=== PATIENT | female | born 1985 | race Caucasian/White ===

== ENCOUNTER 2017-06-12 15:35 | Emergency (ER) | payer OTHER ==
[2017-06-12] MEDS ORDERED: NA CHLORIDE 0.9% 1,000 ML ONE ×2 (16:40→17:08)
[2017-06-12 16:43] LABS: Urine Blood 2+ (NEG); Urine Glucose NEGATIVE (NEG); Urine Protein NEGATIVE (NEG); Urine Specific Gravity 1.015 (1.005-1.030)
[2017-06-12 16:45] LABS: Urine Bacteria NONE SEEN /HPF (<20); Urine Culture Reflex Order NOT NEEDED; Urine RBC <5 /HPF (NONE SEEN)
[2017-06-12 16:51] LABS: Absolute Lymphocytes (CBC) 1.5 K/uL (0.7-4.9); Absolute Monocytes 0.4 K/uL (0.1-1.3); Absolute Neutrophil 6.1 K/uL (1.8-8.0); Basophils % 0.2 % (0-1.3); Eosinophils % 0.9 % (0-4.4); Hematocrit 40.6 % (36.0-45.0); Lymphocytes % 18.2 % (15.3-44.8); MCH 30.3 pg (27.0-35.0); MCV 87.5 fL (80-100); MPV 7.1 fL (7.6-11.3); Monocytes % 4.5 % (3.3-12.3); RBC Red Blood Cell Count 4.64 M/uL (3.86-4.86)
[2017-06-12 16:54] LABS: Potassium 3.6 mEq/L (3.6-5.0)
[2017-06-12] MEDS ORDERED: KETOROLAC 30 MG/ML INJ ONE (17:08)
[2017-06-12] MEDS ORDERED: PROMETHAZINE 25 MG/ML VIAL ONE (17:08)
--- NOTE | 2017-06-12 17:59 | ER ---
Nurse's Notes [facility] Name: Abigail Jarrell Age: 32 yrs Sex: Female : 1985 Arrival Date: 06/12/2017 Time: 15:39 Bed 19 Private MD: Diagnosis: Headache;Volume depletion Presentation: 06/12 15:51 Presenting complaint: Patient states: "My head is killing me and I have been lk1 vomiting.". Transition of care: patient was not received from another setting of care. Onset of symptoms was June 12, 2017 at 09:00. Care prior to arrival: None. 15:51 Method Of Arrival: Ambulatory lk1 15:51 Acuity: LISANDRA 3 lk1 Triage Assessment: 15:52 General: Appears in no apparent distress. Behavior is calm, cooperative, appropriate lk1 for age. Pain: Complains of pain in head Pain currently is 9 out of 10 on a pain scale. GI: Reports nausea, vomiting. 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 - Social history:: Smoking status: Patient uses tobacco products, denies chronic smoking, but will smoke occasionally. Screenin:15 Abuse screen: Denies threats or abuse. Denies injuries from another. Nutritional jl7 screening: No deficits noted. Tuberculosis screening: No symptoms or risk factors identified. Fall Risk IV access (20 points). Total Shepard Fall Scale indicates No Risk (0-24 pts). Assessment: 16:00 General: Appears in no apparent distress. uncomfortable, Behavior is calm, cooperative, jl7 appropriate for age. Pain: Complains of pain in headache Pain does not radiate. Pain currently is 8 out of 10 on a pain scale. Pain began this morning at 0300 Is continuous. Neuro: Level of Consciousness is awake, alert, obeys commands, Oriented to person, place, time, situation. Cardiovascular: Patient's skin is warm and dry. Respiratory: Airway is patent Respiratory effort is even, unlabored, Respiratory pattern is regular, symmetrical. GI: Abdomen is flat, non-distended, Bowel sounds present X 4 quads. Abd is soft and non tender Reports nausea, vomiting, since this morning. : No signs and/or symptoms were reported regarding the genitourinary system. EENT: No signs and/or symptoms were reported regarding the EENT system. Derm: Skin is pink, warm \\T\\ dry. Musculoskeletal: No signs and/or symptoms reported regarding the musculoskeletal system. 17:00 Reassessment: Patient and/or family updated on plan of care and expected duration. Pain jl7 level reassessed. Patient is alert, oriented x 3, equal unlabored respirations, skin warm/dry/pink. Patient states feeling better. 18:00 Reassessment: No changes from previously documented assessment. Patient and/or family jl7 updated on plan of care and expected duration. Pain level reassessed. Patient is alert, oriented x 3, equal unlabored respirations, skin warm/dry/pink. Vital Signs: 15:53 BP 116 / 79; Pulse 63; Resp 12; Temp 97.7(O); Pulse Ox 99% on R/A; Weight 68.95 kg (R); lk1 Height 5 ft. 6 in. (167.64 cm) (R); Pain 9/10; 17:03 BP 113 / 61; Pulse 62; Resp 16 S; Pulse Ox 100% on R/A; jl7 18:08 BP 118 / 79; Pulse 65; Resp 18 S; Pulse Ox 100% on R/A; jl7 15:53 Body Mass Index 24.53 (68.95 kg, 167.64 cm) lk1 ED Course: 15:39 Patient arrived in ED. mr 15:52 Triage completed. lk1 15:55 Arm band placed on right wrist. lk1 15:57 Dell Rios RN is Primary Nurse. jl7 15:58 Kyra Lucas FNP-C is PHCP. snw 15:59 Joe Du MD is Attending Physician. snw 16:15 Patient has correct armband on for positive identification. Placed in gown. Bed in low jl7 position. Call light in reach. Side rails up X 1. Pulse ox on. NIBP on. Warm blanket given. 16:30 Initial lab(s) drawn, by me, sent to lab. Urine collected: clean catch specimen, jl7 cloudy. Inserted saline lock: 22 gauge in left antecubital area, using aseptic technique. Blood collected. 18:21 No provider procedures requiring assistance completed. IV discontinued, intact, jl7 bleeding controlled, No redness/swelling at site. Pressure dressing applied. Administered Medications: 16:35 Drug: NS 0.9% 1000 ml Route: IV; Rate: 1 bolus; Site: left antecubital; jl7 16:50 Drug: NS 0.9% 1000 ml Route: IV; Rate: 1 bolus; Site: left antecubital; jl7 16:51 Drug: TORadol 30 mg Route: IVP; Site: left antecubital; jl7 17:35 Follow up: Response: No adverse reaction jl7 16:53 Drug: Phenergan 6.25 mg Route: IVP; Site: left antecubital; jl7 17:35 Follow up: Response: No adverse reaction; Nausea is decreased jl7 Outcome: 17:59 Discharge ordered by MD. davis 18:21 Discharged to home ambulatory. jl7 18:21 Condition: stable 18:21 Discharge instructions given to patient, Instructed on discharge instructions, follow up and referral plans. medication usage, Demonstrated understanding of instructions, follow-up care, medications, Prescriptions given X 1. 18:22 Patient left the ED. jl7 Signatures: Kyra Lucas, MANAGER OF CORPORATE-C MANAGER OF CORPORATE-Lou Holm Leah, RN RN lk1 Dell Rios RN RN jl7
--- NOTE | 2017-06-12 17:59 | EDPHYS ---
Physician Documentation [facility] Name: Abigail Jarrell Age: 32 yrs Sex: Female : 1985 Arrival Date: 06/12/2017 Time: 15:39 Bed 19 Private MD: ED Physician Joe Du HPI: 06/12 18:22 This 32 yrs old Female presents to ER via Ambulatory with complaints of snw Abdominal Pain, Headache. 18:22 The patient presents with vomiting. Onset: The symptoms/episode began/occurred snw suddenly, today. The symptoms do not radiate. Associated signs and symptoms: Pertinent positives: headache. The symptoms are described as pressure. Modifying factors: The symptoms are alleviated by nothing. Severity of pain: At its worst the pain was moderate. The patient has not experienced similar symptoms in the past, but family has similar symptoms. It is unknown whether or not the patient has recently seen a physician. 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 - Social history:: Smoking status: Patient uses tobacco products, denies chronic smoking, but will smoke occasionally. ROS: 18:19 Constitutional: Negative for fever, chills, and weight loss, Eyes: Negative for injury, snw pain, redness, and discharge, + pressure ENT: Negative for injury, pain, and discharge, Neck: Negative for injury, pain, and swelling, Cardiovascular: Negative for chest pain, palpitations, and edema, Respiratory: Negative for shortness of breath, cough, wheezing, and pleuritic chest pain, Abdomen/GI: Negative for abdominal pain, nausea, diarrhea, and constipation, + vomiting Back: Negative for injury and pain, : Negative for injury, bleeding, discharge, and swelling, MS/Extremity: Negative for injury and deformity, Skin: Negative for injury, rash, and discoloration. 18:19 Neuro: Positive for headache. Exam: 18:21 Constitutional: This is a well developed, well nourished patient who is awake, alert, snw and in no acute distress. Head/Face: Normocephalic, atraumatic. Eyes: Pupils equal round and reactive to light, extra-ocular motions intact. Lids and lashes normal. Conjunctiva and sclera are non-icteric and not injected. Cornea within normal limits. Periorbital areas with no swelling, redness, or edema. ENT: Nares patent. No nasal discharge, no septal abnormalities noted. Tympanic membranes are normal and external auditory canals are clear. Oropharynx with no redness, swelling, or masses, exudates, or evidence of obstruction, uvula midline. Mucous membranes moist. Neck: Trachea midline, no thyromegaly or masses palpated, and no cervical lymphadenopathy. Supple, full range of motion without nuchal rigidity, or vertebral point tenderness. No Meningismus. Chest/axilla: Normal chest wall appearance and motion. Nontender with no deformity. No lesions are appreciated. Cardiovascular: Regular rate and rhythm with a normal S1 and S2. No gallops, murmurs, or rubs. Normal PMI, no JVD. No pulse deficits. Respiratory: Lungs have equal breath sounds bilaterally, clear to auscultation and percussion. No rales, rhonchi or wheezes noted. No increased work of breathing, no retractions or nasal flaring. Abdomen/GI: Soft, non-tender, with normal bowel sounds. No distension or tympany. No guarding or rebound. No evidence of tenderness throughout. Back: No spinal tenderness. No costovertebral tenderness. Full range of motion. Skin: Warm, dry with normal turgor. Normal color with no rashes, no lesions, and no evidence of cellulitis. MS/ Extremity: Pulses equal, no cyanosis. Neurovascular intact. Full, normal range of motion. Neuro: Awake and alert, GCS 15, oriented to person, place, time, and situation. Cranial nerves II-XII grossly intact. Motor strength 5/5 in all extremities. Sensory grossly intact. Cerebellar exam normal. Normal gait. Vital Signs: 15:53 BP 116 / 79; Pulse 63; Resp 12; Temp 97.7(O); Pulse Ox 99% on R/A; Weight 68.95 kg (R); lk1 Height 5 ft. 6 in. (167.64 cm) (R); Pain 9/10; 17:03 BP 113 / 61; Pulse 62; Resp 16 S; Pulse Ox 100% on R/A; jl7 18:08 BP 118 / 79; Pulse 65; Resp 18 S; Pulse Ox 100% on R/A; jl7 15:53 Body Mass Index 24.53 (68.95 kg, 167.64 cm) lk1 MDM: 15:59 Patient medically screened. snw 18:15 Data reviewed: vital signs, nurses notes. Data interpreted: Pulse oximetry: on room air snw is 100 %. Interpretation: normal. Counseling: I had a detailed discussion with the patient and/or guardian regarding: the historical points, exam findings, and any diagnostic results supporting the discharge/admit diagnosis, lab results, the need for outpatient follow up, to return to the emergency department if symptoms worsen or persist or if there are any questions or concerns that arise at home. Special discussion: Based on the patient's Hx, exam, and Dx evaluation, there is no indication for emergent surgery or inpatient Tx. It is understood by the patient/guardian that if the Sx's persist or worsen they need to return immediately for re-evaluation. Based on the history and exam findings, there is no indication for further emergent testing or inpatient evaluation. I discussed with the patient/guardian the need to see the primary care provider for further evaluation of the symptoms. 18:22 Response to treatment: the patient's symptoms have markedly improved after treatment, snw the patient's condition has returned to base line, patient is well hydrated. 06/12 15:59 Order name: Urine Culture snw 06/12 15:59 Order name: Urine Microscopic Only; Complete Time: 16:46 snw 06/12 16:08 Order name: CBC with Diff; Complete Time: 17:09 snw 06/12 16:08 Order name: Chem 7; Complete Time: 17:09 snw 06/12 16:08 Order name: Strep; Complete Time: 17:09 snw 06/12 16:29 Order name: Urine Dipstick--Ancillary (enter results); Complete Time: 16:45 bd 06/12 15:59 Order name: Urine Test (obtain specimen); Complete Time: 16:21 snw 06/12 15:59 Order name: Urine Dipstick-Ancillary (obtain specimen); Complete Time: 16:21 snw 06/12 16:29 Order name: Urine --Ancillary (enter results); Complete Time: 16:45 bd 06/12 17:01 Order name: Throat Culture EDMT Administered Medications: 16:35 Drug: NS 0.9% 1000 ml Route: IV; Rate: 1 bolus; Site: left antecubital; jl7 16:50 Drug: NS 0.9% 1000 ml Route: IV; Rate: 1 bolus; Site: left antecubital; jl7 16:51 Drug: TORadol 30 mg Route: IVP; Site: left antecubital; jl7 17:35 Follow up: Response: No adverse reaction jl7 16:53 Drug: Phenergan 6.25 mg Route: IVP; Site: left antecubital; jl7 17:35 Follow up: Response: No adverse reaction; Nausea is decreased jl7 Disposition: 06/13 07:38 Co-signature as Attending Physician, Joe Du MD I agree with the assessment and [facility] plan of care. Disposition: 06/12/17 17:59 Discharged to Home. Impression: Headache, Volume depletion. - Condition is Stable. - Discharge Instructions: Dehydration, Adult, General Headache Without Cause, Rehydration, Adult. - Prescriptions for Zofran 4 mg Oral Tablet - take 1 tablet by ORAL route every 12 hours As needed; 20 tablet. - Work release form, Medication Reconciliation Form, Thank You Letter, Antibiotic Education, Prescription Opioid Use form. - Follow up: Private Physician; When: 2 - 3 days; Reason: Recheck today's complaints, Continuance of care, Re-evaluation by your physician. Follow up: Emergency Department; When: As needed; Reason: Worsening of condition. Signatures: Dispatcher [employer] [place] Joe Du MD MD cha Therrien, Shelly, SOLUTIONS SPECIALIST-C SOLUTIONS SPECIALIST-Csnw Marisabel Erazo, RN RN lk1 Dell Rios RN RN jl7
[2017-06-12 18:28] VITALS: TEMP 97.7
[2017-06-12 18:29] VITALS: O2SAT 100
[2017-06-12 18:30] VITALS: BP 118/79
== END 2017-06-12 18:22 | disposition home or self-care (01) ==
LOC: ER 15:35
DX: E86.9 Volume depletion, unspecified (principal); Z72.0 Tobacco use
CPT/HCPCS: 36415; 80048; 81003; 81015; 81025; 85025; 87070; 87081; 87086; 87088; 96374; 96375; 99284; J2550; J7030

== ENCOUNTER 2017-11-28 11:17 | Emergency (ER) | payer OTHER ==
[2017-11-28] MEDS ORDERED: MEPERIDINE HCL 50 MG/ML AMP ONE (12:12)
[2017-11-28] MEDS ORDERED: ONDANSETRON 4 MG (ODT) TAB ONE (12:12)
--- NOTE | 2017-11-28 12:30 | ER ---
Nurse's Notes [facility] Name: Abigail Jarrell Age: 32 yrs Sex: Female : 1985 Arrival Date: 11/28/2017 Time: 11:22 Bed 11 Private MD: Diagnosis: Pain in left shoulder;Strain of other muscles, fascia and tendons at shoulder and upper arm level, left arm Presentation: 11/28 11:27 Presenting complaint: Patient states: Left shoulder pain that began today around 0200. aa5 Pt denies known injury. Transition of care: patient was not received from another setting of care. Onset of symptoms was November 28, 2017. Risk Assessment: Do you want to hurt yourself or someone else? Patient reports no desire to harm self or others. Initial Sepsis Screen: Does the patient meet any 2 criteria? No. Patient's initial sepsis screen is negative. Does the patient have a suspected source of infection? No. Patient's initial sepsis screen is negative. Care prior to arrival: None. 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 - Social history:: Smoking status: Patient/guardian denies using tobacco. - Ebola Screening: : No symptoms or risks identified at this time. Screenin:17 Abuse screen: Denies threats or abuse. Denies injuries from another. Nutritional iw screening: No deficits noted. Tuberculosis screening: No symptoms or risk factors identified. Fall Risk None identified. Assessment: 12:17 General: Appears in no apparent distress. Behavior is calm, cooperative. Pain: iw Complains of pain in anterior aspect of left shoulder and posterior aspect of left shoulder. Neuro: Level of Consciousness is awake, alert, obeys commands, Oriented to person, place, time, situation. Vital Signs: 11:29 BP 135 / 90; Pulse 85; Resp 16 S; Temp 98.2(TE); Pulse Ox 100% on R/A; Weight 65.77 kg aa5 (R); Height 5 ft. 5 in. (165.10 cm) (R); Pain 10/18; 11:29 Body Mass Index 24.13 (65.77 kg, 165.10 cm) aa5 ED Course: 11:22 Patient arrived in ED. mr 11:28 Triage completed. aa5 11:28 Arm band placed on. aa5 11:31 Sharlene Soni, RN is Primary Nurse. iw 11:33 Obi Mcgarry PA is PHCP. jr8 11:33 Olvin Sapp MD is Attending Physician. jr8 12:00 Patient has correct armband on for positive identification. iw 12:17 No provider procedures requiring assistance completed. Patient did not have IV access iw during this emergency room visit. 12:27 X-ray completed. Portable x-ray completed in exam room. Patient tolerated procedure ml well. 12:29 XRAY Shoulder LEFT 2 view In Process Unspecified. EDMS 12:29 Toby Oviedo MD is Referral Physician. jr8 Administered Medications: 11:50 CANCELLED (Physician Discretion): Phenergan 25 mg IVP once jr8 12:10 Drug: Demerol 50 mg Route: IM; Site: right deltoid; iw 12:25 Follow up: Response: No adverse reaction; Pain is decreased iw 12:10 Drug: Zofran 4 mg Route: PO; iw 12:25 Follow up: Response: No adverse reaction iw Outcome: 12:30 Discharge ordered by . jr8 12:45 Discharged to home ambulatory, with family. iw 12:45 Condition: good 12:45 Discharge instructions given to patient, Instructed on discharge instructions, follow up and referral plans. medication usage, Demonstrated understanding of instructions, follow-up care, medications, Prescriptions given X 3. 12:47 Patient left the ED. iw Signatures: Dispatcher [employer] [facility] Lou Yañez Sharlene Soni, RN RN iw Molly Lisa Audri, RN RN aa Obi Mcgarry PA PA jr8
--- NOTE | 2017-11-28 12:30 | EDPHYS ---
Physician Documentation [facility] Name: Abigail Jarrell Age: 32 yrs Sex: Female : 1985 Arrival Date: 11/28/2017 Time: 11:22 Bed 11 Private MD: ED Physician Olvin Sapp HPI: 11/28 12:24 This 32 yrs old Female presents to ER via Ambulatory with complaints of jr8 Shoulder Pain. 12:24 The patient or guardian complains of decreased range of motion, pain. left shoulder. jr8 Onset: The symptoms/episode began/occurred acutely, this morning. Modifying factors: the symptoms are alleviated by nothing. The symptoms are aggravated by movement. Associated signs and symptoms: The patient has no apparent associated signs or symptoms. Severity of symptoms: At their worst the symptoms were moderate, in the emergency department the symptoms are unchanged. The patient has not experienced similar symptoms in the past. The patient has not recently seen a physician. Stated that she intensely works out almost daily. Stated that this morning had left shoulder pain that is not going away. Denied trauma or pain with exercising yesterday . 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 - Social history:: Smoking status: Patient/guardian denies using tobacco. - Ebola Screening: : No symptoms or risks identified at this time. ROS: 12:24 Eyes: Negative for injury, pain, redness, and discharge, ENT: Negative for injury, jr8 pain, and discharge, Neck: Negative for injury, pain, and swelling, Cardiovascular: Negative for chest pain, palpitations, and edema, Respiratory: Negative for shortness of breath, cough, wheezing, and pleuritic chest pain, Abdomen/GI: Negative for abdominal pain, nausea, vomiting, diarrhea, and constipation, Back: Negative for injury and pain, Skin: Negative for injury, rash, and discoloration, Neuro: Negative for headache, weakness, numbness, tingling, and seizure. 12:24 MS/extremity: Positive for decreased range of motion, pain, tenderness, of the left shoulder. Exam: 12:24 Eyes: Pupils equal round and reactive to light, extra-ocular motions intact. Lids and jr8 lashes normal. Conjunctiva and sclera are non-icteric and not injected. Cornea within normal limits. Periorbital areas with no swelling, redness, or edema. ENT: Nares patent. No nasal discharge, no septal abnormalities noted. Tympanic membranes are normal and external auditory canals are clear. Oropharynx with no redness, swelling, or masses, exudates, or evidence of obstruction, uvula midline. Mucous membranes moist. Neck: Trachea midline, no thyromegaly or masses palpated, and no cervical lymphadenopathy. Supple, full range of motion without nuchal rigidity, or vertebral point tenderness. No Meningismus. Cardiovascular: Regular rate and rhythm with a normal S1 and S2. No gallops, murmurs, or rubs. Normal PMI, no JVD. No pulse deficits. Respiratory: Lungs have equal breath sounds bilaterally, clear to auscultation and percussion. No rales, rhonchi or wheezes noted. No increased work of breathing, no retractions or nasal flaring. Abdomen/GI: Soft, non-tender, with normal bowel sounds. No distension or tympany. No guarding or rebound. No evidence of tenderness throughout. Back: No spinal tenderness. No costovertebral tenderness. Full range of motion. Skin: Warm, dry with normal turgor. Normal color with no rashes, no lesions, and no evidence of cellulitis. Neuro: Awake and alert, GCS 15, oriented to person, place, time, and situation. Cranial nerves II-XII grossly intact. Motor strength 5/5 in all extremities. Sensory grossly intact. Cerebellar exam normal. Normal gait. 12:24 Musculoskeletal/extremity: Extremities: grossly normal except: noted in the left shoulder: Pain to insertion site of pectoralis muscle and bicipital tendon. Pain reproduced with palpation is exact pain that she has been having. No bony tenderness appreciated. Mild pain with ROM, Circulation is intact in all extremities. Sensation intact. Vital Signs: 11:29 BP 135 / 90; Pulse 85; Resp 16 S; Temp 98.2(TE); Pulse Ox 100% on R/A; Weight 65.77 kg aa5 (R); Height 5 ft. 5 in. (165.10 cm) (R); Pain 8/10; 11:29 Body Mass Index 24.13 (65.77 kg, 165.10 cm) aa5 MDM: 11:33 Patient medically screened. jr8 12:29 Data reviewed: vital signs, nurses notes, radiologic studies, plain films, and as a jr8 result, I will discharge patient. Data interpreted: Pulse oximetry: on room air is 100 %. Interpretation: normal. Counseling: I had a detailed discussion with the patient and/or guardian regarding: the historical points, exam findings, and any diagnostic results supporting the discharge/admit diagnosis, radiology results, the need for outpatient follow up, a orthopedic surgeon, to return to the emergency department if symptoms worsen or persist or if there are any questions or concerns that arise at home. Response to treatment: the patient's symptoms have markedly improved after treatment. 11/28 11:47 Order name: XRAY Shoulder LEFT 2 view jr8 Administered Medications: 11:50 CANCELLED (Physician Discretion): Phenergan 25 mg IVP once jr8 12:10 Drug: Demerol 50 mg Route: IM; Site: right deltoid; iw 12:25 Follow up: Response: No adverse reaction; Pain is decreased iw 12:10 Drug: Zofran 4 mg Route: PO; iw 12:25 Follow up: Response: No adverse reaction iw Disposition: 15:33 Co-signature as Attending Physician, Olvin Sapp MD I agree with the assessment and kdr plan of care. Disposition: 11/28/17 12:30 Discharged to Home. Impression: Pain in left shoulder, Strain of other muscles, fascia and tendons at shoulder and upper arm level, left arm. - Condition is Stable. - Discharge Instructions: Musculoskeletal Pain, Shoulder Pain. - Prescriptions for Ibuprofen 800 mg Oral Tablet - take 1 tablet by ORAL route every 12 hours As needed take with food; 20 tablet. Cyclobenzaprine 10 mg Oral Tablet - take 1 tablet by ORAL route every 8 hours As needed; 30 tablet. Tramadol 50 mg Oral Tablet - take 1 tablet by ORAL route every 8 hours as needed; 12 tablet. - Work release form, Medication Reconciliation Form, Thank You Letter, Antibiotic Education, Prescription Opioid Use form. - Follow up: Toby Oviedo MD; When: 1 week; Reason: If symptoms return, Recheck today's complaints, Continuance of care, Re-evaluation by your physician. - Problem is new. - Symptoms have improved. Signatures: Dispatcher [employer] EDMS Olvin Sapp MD MD kdr Sharlene Soni RN RN iw Cris Martin RN RN aa5 Obi Mcgarry PA PA jr8 Corrections: (The following items were deleted from the chart) 11:50 11:50 Phenergan 25 mg IVP once ordered. jr8 jr8 12:27 12:24 Musculoskeletal/extremity: Extremities: grossly normal except: noted in the left jr8 shoulder: Pain to insertion site of pectoralis muscle and bicipital tendon. No bony tenderness appreciated. Mild pain with ROM, Circulation is intact in all extremities. Sensation intact. jr8 12:47 12:30 11/28/2017 12:30 Discharged to Home. Impression: Pain in left shoulder; Strain of iw other muscles, fascia and tendons at shoulder and upper arm level, left arm. Condition is Stable. Forms are Medication Reconciliation Form, Thank You Letter, Antibiotic Education, Prescription Opioid Use. Follow up: Toby Oviedo; When: 1 week; Reason: If symptoms return, Recheck today's complaints, Continuance of care, Re-evaluation by your physician. Problem is new. Symptoms have improved. jr8
--- NOTE | 2017-11-28 12:54 | RAD REPORT ---
EXAM DESCRIPTION: RAD - Shoulder Left 2 View - 11/28/2017 12:29 pm CLINICAL HISTORY: PAIN COMPARISON: No comparisons FINDINGS: Mild subacromial no outlet narrowing is seen. No fracture or dislocation present. No aggre ssive marrow lesion observed.
[2017-11-28 12:58] VITALS: BP 135/90; TEMP 98.2; O2SAT 100
== END 2017-11-28 12:47 | disposition home or self-care (01) ==
LOC: ER 11:17
DX: S46.812A Strain of other muscles, fascia and tendons at shoulder and upper arm level, left arm, initial encounter (principal)
CPT/HCPCS: 96372; 99283; J2175

== ENCOUNTER 2019-05-04 09:31 | Emergency (ER) | payer OTHER ==
[2019-05-04 10:53] LABS: Urine Blood 3+ (NEG); Urine Glucose NEGATIVE (NEG); Urine Protein 1+ (NEG); Urine Specific Gravity >1.030 (1.005-1.030)
[2019-05-04 11:20] LABS: Absolute Lymphocytes (CBC) 2.1 K/uL (0.7-4.9); Basophils % 0.8 % (0-1.3); Hematocrit 35.6 % (36.0-45.0); Lymphocytes % 29.4 % (15.3-44.8); MPV 7.1 fL (7.6-11.3); RBC Red Blood Cell Count 3.99 M/uL (3.86-4.86)
[2019-05-04 11:36] LABS: Potassium 3.6 mmol/L (3.5-5.1)
--- NOTE | 2019-05-04 11:58 | ER ---
Nurse's Notes [facility] Name: Abigail Jarrell Age: 34 yrs Sex: Female : 1985 Arrival Date: 05/04/2019 Time: 09:33 Bed 14 Private MD: Diagnosis: Other abnormal uterine and vaginal bleeding Presentation: 05/04 10:02 Presenting complaint: Heavy menstrual bleeding with large clots and generalized hb weakness x 6 weeks. Transition of care: patient was not received from another setting of care. Onset of symptoms was March 2019. Risk Assessment: Do you want to hurt yourself or someone else? Patient reports no desire to harm self or others. Care prior to arrival: None. 10:02 Method Of Arrival: Ambulatory hb 10:02 Acuity: LISANDRA 3 hb 10:10 Initial Sepsis Screen: Does the patient meet any 2 criteria? No. Patient's initial bp sepsis screen is negative. Does the patient have a suspected source of infection? No. Patient's initial sepsis screen is negative. Triage Assessment: 10:05 General: Appears in no apparent distress. comfortable, Behavior is calm, cooperative, bp appropriate for age. Pain: Denies pain. EENT: No deficits noted. Neuro: No deficits noted. Cardiovascular: No deficits noted. Respiratory: No deficits noted. GI: No signs and/or symptoms were reported involving the gastrointestinal system. : Reports vaginal bleeding that is with clots. Derm: No deficits noted. Musculoskeletal: No deficits noted. 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 - Coronavirus screen:: The patient has NOT traveled to [place] in the past 14 days. The patient has NOT had contact with known/suspected case of Coronavirus? Proceed with normal triage procedures. - Social history:: Smoking status: Patient reports the use of cigarette tobacco products, smokes one pack cigarettes per day. - Ebola Screening: : No symptoms or risks identified at this time. Screenin:05 Abuse screen: Denies threats or abuse. Denies injuries from another. Nutritional bp screening: No deficits noted. Tuberculosis screening: No symptoms or risk factors identified. Fall Risk None identified. Assessment: 10:05 General: SEE TRIAGE NOTE. : Urine is cloudy. bp 11:00 Reassessment: ORTHOSTATICS NEGATIVE. NO S/S ACUTE DISTRESS. bp 12:26 Reassessment: PT D/C HOME AMBULATORY WITH FAMILY, DX WITH ABNORMAL UTERINE BLEEDING. bp Vital Signs: 10:04 BP 111 / 80; Pulse 88; Resp 16; Temp 97.7; Pulse Ox 100% ; Weight 61.23 kg; Height 5 hb ft. 5 in. (165.10 cm); Pain 0/10; 10:51 BP 112 / 71 RA Supine (auto/reg); Pulse 67; Pulse Ox 100% ; ms 10:51 BP 123 / 82 RA Sitting (auto/reg); Pulse 83; Pulse Ox 100% ; ms 10:51 BP 118 / 77 RA Standing (auto/reg); Pulse 81; Pulse Ox 99% ; ms 12:27 BP 114 / 77; Pulse 86; Resp 16; Temp 98; Pulse Ox 99% ; bp 10:04 Body Mass Index 22.46 (61.23 kg, 165.10 cm) hb ED Course: 09:33 Patient arrived in ED. rg4 10:03 Triage completed. hb 10:04 Arm band placed on. hb 10:05 Patient has correct armband on for positive identification. Bed in low position. Call bp light in reach. Side rails up X2. 10:06 Kath[facility] Harmon F[facility]-C [facility]. kb 10:06 Olvin Sapp MD is Attending Physician. kb 10:21 Jamel Greene, JUANIS is Primary Nurse. bp 11:05 Inserted saline lock: 22 gauge in left antecubital area, using aseptic technique. Blood bp collected. 12:27 No provider procedures requiring assistance completed. IV discontinued, intact, bp bleeding controlled, No redness/swelling at site. Pressure dressing applied. Administered Medications: No medications were administered Outcome: 11:54 Discharge ordered by . kb 12:27 Discharged to home ambulatory, with family. bp 12:27 Condition: stable 12:27 Discharge instructions given to patient, Instructed on discharge instructions, follow up and referral plans. Demonstrated understanding of instructions, follow-up care. 12:28 Patient left the ED. bp Signatures: Kathya Harmon, MAGALI MUÑOZ-Lou Cruz ms, Heather, RN RN Yoana Chu Brian, JUANIS RN bp
--- NOTE | 2019-05-04 11:59 | EDPHYS ---
Physician Documentation [facility] Name: Abigail Jarrell Age: 34 yrs Sex: Female : 1985 Arrival Date: 05/04/2019 Time: 09:33 Bed 14 Private MD: ED Physician Olvin Sapp HPI: 05/04 11:27 This 34 yrs old Female presents to ER via Ambulatory with complaints of kb Vaginal Bleeding, Weakness. 11:27 The patient presents with vaginal bleeding that is moderate, with clots. Onset: The kb symptoms/episode began/occurred 1 month(s) ago. Modifying factors: The symptoms are alleviated by nothing, the symptoms are aggravated by nothing. Associated signs and symptoms: Pertinent positives: vaginal bleeding. Severity of symptoms: At their worst the symptoms were moderate, in the emergency department the symptoms are unchanged. The patient's method of control includes nexplanon. The patient has not experienced similar symptoms in the past. The patient has not recently seen a physician. Pt reports vaginal bleeding for a month, clots started over a week ago. Denies pain. Called her PCP and was told to come to the ER because "they have the testing availability that you need.". 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 - Coronavirus screen:: The patient has NOT traveled to [place] in the past 14 days. The patient has NOT had contact with known/suspected case of Coronavirus? Proceed with normal triage procedures. - Social history:: Smoking status: Patient reports the use of cigarette tobacco products, smokes one pack cigarettes per day. - Ebola Screening: : No symptoms or risks identified at this time. ROS: 11:25 Constitutional: Negative for fever, chills, and weight loss, Neck: Negative for injury, kb pain, and swelling, Cardiovascular: Negative for chest pain, palpitations, and edema, Respiratory: Negative for shortness of breath, cough, wheezing, and pleuritic chest pain, Abdomen/GI: Negative for abdominal pain, nausea, vomiting, diarrhea, and constipation, Back: Negative for injury and pain, MS/Extremity: Negative for injury and deformity, Skin: Negative for injury, rash, and discoloration, Neuro: Negative for headache, weakness, numbness, tingling, and seizure. 11:25 : Positive for vaginal bleeding. Exam: 11:25 Constitutional: This is a well developed, well nourished patient who is awake, alert, kb and in no acute distress. Head/Face: Normocephalic, atraumatic. Neck: Trachea midline, no thyromegaly or masses palpated, and no cervical lymphadenopathy. Supple, full range of motion without nuchal rigidity, or vertebral point tenderness. No Meningismus. Chest/axilla: Normal chest wall appearance and motion. Nontender with no deformity. No lesions are appreciated. Cardiovascular: Regular rate and rhythm with a normal S1 and S2. No gallops, murmurs, or rubs. Normal PMI, no JVD. No pulse deficits. Respiratory: Lungs have equal breath sounds bilaterally, clear to auscultation and percussion. No rales, rhonchi or wheezes noted. No increased work of breathing, no retractions or nasal flaring. Abdomen/GI: Soft, non-tender, with normal bowel sounds. No distension or tympany. No guarding or rebound. No evidence of tenderness throughout. Skin: Warm, dry with normal turgor. Normal color with no rashes, no lesions, and no evidence of cellulitis. MS/ Extremity: Pulses equal, no cyanosis. Neurovascular intact. Full, normal range of motion. Neuro: Awake and alert, GCS 15, oriented to person, place, time, and situation. Cranial nerves II-XII grossly intact. Motor strength 5/5 in all extremities. Sensory grossly intact. Cerebellar exam normal. Normal gait. Vital Signs: 10:04 BP 111 / 80; Pulse 88; Resp 16; Temp 97.7; Pulse Ox 100% ; Weight 61.23 kg; Height 5 hb ft. 5 in. (165.10 cm); Pain 0/10; 10:51 BP 112 / 71 RA Supine (auto/reg); Pulse 67; Pulse Ox 100% ; ms 10:51 BP 123 / 82 RA Sitting (auto/reg); Pulse 83; Pulse Ox 100% ; ms 10:51 BP 118 / 77 RA Standing (auto/reg); Pulse 81; Pulse Ox 99% ; ms 12:27 BP 114 / 77; Pulse 86; Resp 16; Temp 98; Pulse Ox 99% ; bp 10:04 Body Mass Index 22.46 (61.23 kg, 165.10 cm) hb MDM: 10:33 Patient medically screened. kb 11:25 Data reviewed: vital signs, nurses notes. Data interpreted: Pulse oximetry: on room air kb is 99 %. Interpretation: normal. 11:26 Differential diagnosis: menorrhea, uterine fibroids. kb 11:54 Data reviewed: lab test result(s). Counseling: I had a detailed discussion with the patient and/or guardian regarding: the historical points, exam findings, and any diagnostic results supporting the discharge/admit diagnosis, lab results, the need for outpatient follow up, an OB/Gyne specialist, to return to the emergency department if symptoms worsen or persist or if there are any questions or concerns that arise at home. 05/04 10:39 Order name: Urine Dipstick--Ancillary (enter results); Complete Time: 11:00 bd 05/04 10:39 Order name: Urine --Ancillary (enter results); Complete Time: 11:00 bd 05/04 10:06 Order name: Urine Test (obtain specimen); Complete Time: 10:41 kb 05/04 10:06 Order name: Urine Dipstick-Ancillary (obtain specimen); Complete Time: 10:41 kb 05/04 10:50 Order name: CBC with Diff; Complete Time: 11:29 kb 05/04 10:50 Order name: Basic Metabolic Panel; Complete Time: 11:54 kb 05/04 10:06 Order name: Orthostatics; Complete Time: 10:41 kb 05/04 10:50 Order name: IV Start; Complete Time: 11:06 kb Administered Medications: No medications were administered Disposition: 16:21 Co-signature as Attending Physician, Olvin Sapp MD I agree with the assessment and kdr plan of care. Disposition: 05/04/19 11:54 Discharged to Home. Impression: Other abnormal uterine and vaginal bleeding. - Condition is Stable. - Discharge Instructions: Abnormal Uterine Bleeding, [id number]. - Medication Reconciliation Form, Thank You Letter, Antibiotic Education, Prescription Opioid Use form. - Follow up: Emergency Department; When: As needed; Reason: Worsening of condition. Follow up: Private Physician; When: 2 - 3 days; Reason: Recheck today's complaints, Continuance of care, Re-evaluation by your physician. Signatures: Dispatcher [employer] EDMS FaustinoRussKathya, NOVELTY TWISTER OPERATOR-C NOVELTY TWISTER OPERATOR-Ckb Olvin Sapp MD MD [facility] Dory John RN RN Jamel Greene RN RN bp Corrections: (The following items were deleted from the chart) 12:28 11:54 05/04/2019 11:54 Discharged to Home. Impression: Other abnormal uterine and bp vaginal bleeding. Condition is Stable. Forms are Medication Reconciliation Form, Thank You Letter, Antibiotic Education, Prescription Opioid Use. Follow up: Emergency Department; When: As needed; Reason: Worsening of condition. Follow up: Private Physician; When: 2 - 3 days; Reason: Recheck today's complaints, Continuance of care, Re-evaluation by your physician. kb
[2019-05-04 13:08] VITALS: BP 114/77; TEMP 98; O2SAT 99
== END 2019-05-04 12:28 | disposition home or self-care (01) ==
LOC: ER 09:31
DX: N93.8 Other specified abnormal uterine and vaginal bleeding (principal); F32.9 Major depressive disorder, single episode, unspecified; F17.210 Nicotine dependence, cigarettes, uncomplicated
CPT/HCPCS: 36415; 80048; 81003; 81025; 85025; 99283

== ENCOUNTER 2020-02-21 20:14 | Emergency (ER) | payer BC, OTHER, SELFPAY ==
[2020-02-21 20:41] LABS: Urine Blood NEGATIVE (NEG); Urine Glucose NEGATIVE (NEG); Urine Protein TRACE (NEG); Urine Specific Gravity 1.015 (1.005-1.030); Urine pH 8.5 (5.0-7.0)
[2020-02-21 20:56] LABS: Urine Bacteria <20 /HPF (<20); Urine RBC <5 /HPF (NONE SEEN)
[2020-02-21 20:57] LABS: Urine Amorphous Sediment 3+ /HPF (NONE SEEN); Urine Mucus 2+ /HPF (NONE SEEN)
[2020-02-21] MEDS ORDERED: METOCLOPRAMIDE 10 MG/2mL INJ ONE (21:32)
[2020-02-21] MEDS ORDERED: DIPHENHYDRAMINE 50 MG/ML VIAL ONE (21:32)
[2020-02-21] MEDS ORDERED: KETOROLAC 30 MG/ML INJ ONE (21:32)
[2020-02-21 21:44] LABS: Absolute Lymphocytes (CBC) 1.5 K/uL (0.7-4.9); Basophils % 0.5 % (0-1.3); Hematocrit 33.8 % (36.0-45.0); Lymphocytes % 11.4 % (15.3-44.8); MPV 6.7 fL (7.6-11.3); RBC Red Blood Cell Count 3.98 M/uL (3.86-4.86)
[2020-02-21 22:01] LABS: Albumin 4.2 g/dL (3.4-5.0); Bilirubin Total 0.2 mg/dL (0.2-1.0); Potassium 4.1 mmol/L (3.5-5.1); Protein, Total 7.9 g/dL (6.4-8.2)
[2020-02-21] MEDS ORDERED: DIAZEPAM 5 MG TABLET ONE (23:22)
--- NOTE | 2020-02-22 00:27 | EDPHYS ---
Physician Documentation [facility] Name: Abigail Jarrell Age: 35 yrs Sex: Female : 1985 Arrival Date: 02/21/2020 Time: 20:18 Bed 15 Private MD: ED Physician Marvin Brady HPI: 02/20 20:27 This 35 yrs old Female presents to ER via Ambulatory with complaints of pm1 General Weakness, Headache, Doesn't Feel Right, Nausea/Vomiting. 20:27 The patient presents to the emergency department with nausea, vomiting. Onset: The pm1 symptoms/episode began/occurred this morning. Possible causes: bad food exposure. The symptoms are aggravated by nothing. The symptoms are alleviated by nothing. Associated signs and symptoms: Pertinent positives: Headache and chills. Severity of symptoms: in the emergency department the symptoms are unchanged. The patient has not experienced similar symptoms in the past. The patient has not recently seen a physician. 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 - Social history:: Smoking status: Patient reports the use of cigarette tobacco products, denies chronic smoking, but will smoke occasionally. ROS: 20:27 Constitutional: Negative for fever, chills, and weight loss, Cardiovascular: Negative pm1 for chest pain, palpitations, and edema, Respiratory: Negative for shortness of breath, cough, wheezing, and pleuritic chest pain. 20:27 Back: Negative for injury and pain, : Negative for injury, bleeding, discharge, and swelling, MS/Extremity: Negative for injury and deformity, Skin: Negative for injury, rash, and discoloration. 20:27 Abdomen/GI: Positive for nausea and vomiting, Negative for abdominal pain, diarrhea, constipation. 20:27 Neuro: Positive for headache, Negative for numbness, tingling, weakness. Exam: 20:27 Constitutional: This is a well developed, well nourished patient who is awake, alert, pm1 and in no acute distress. Head/Face: Normocephalic, atraumatic. 20:27 Back: No spinal tenderness. No costovertebral tenderness. Full range of motion. Skin: Warm, dry with normal turgor. Normal color with no rashes, no lesions, and no evidence of cellulitis. MS/ Extremity: Pulses equal, no cyanosis. Neurovascular intact. Full, normal range of motion. 20:27 Cardiovascular: Exam negative for acute changes, Rate: normal, Rhythm: regular, Pulses: no pulse deficits are appreciated. 20:27 Respiratory: Exam negative for acute changes, respiratory distress, shortness of breath. 20:27 Abdomen/GI: Inspection: abdomen appears normal, Palpation: abdomen is soft and non-tender, in all quadrants. 20:27 Neuro: Orientation: is normal, Mentation: is normal, Cranial nerves: CN II- XII are normal as tested, Motor: is normal, moves all fours. Vital Signs: 20:21 BP 133 / 88; Pulse 63; Resp 16 S; Temp 97.6(TE); Pulse Ox 100% on R/A; Weight 68.04 kg ca1 (R); Height 5 ft. 5 in. (165.10 cm) (R); Pain 8/10; 02/21 00:45 BP 135 / 86; Pulse 65; Resp 15; Temp 98; Pulse Ox 100% on R/A; ll2 02/20 20:21 Body Mass Index 24.96 (68.04 kg, 165.10 cm) ca1 MDM: 02/20 20:50 Patient medically screened. pm1 02/21 00:25 Data reviewed: vital signs. Data interpreted: Pulse oximetry: on room air is 100 %. pm1 Interpretation: normal. Counseling: I had a detailed discussion with the patient and/or guardian regarding: the historical points, exam findings, and any diagnostic results supporting the discharge/admit diagnosis, lab results, radiology results, the need for outpatient follow up, to return to the emergency department if symptoms worsen or persist or if there are any questions or concerns that arise at home. 00:25 ED course: Patient with multiple drug interactions to her current psychiatric pm1 medications for antiemetics typically prescribed in the ER. Therefore will prescribe hydroxyzine which she has taken in the past with her current medciations. 02/20 20:26 Order name: Urine Microscopic Only; Complete Time: 21:54 pm1 02/20 20:37 Order name: Urine --Ancillary (enter results); Complete Time: 20:56 tt3 02/20 20:37 Order name: Urine Dipstick--Ancillary (enter results); Complete Time: 20:56 tt3 02/20 21:05 Order name: COVID-19 pm1 02/20 21:05 Order name: Flu; Complete Time: 23:18 pm1 02/20 21:05 Order name: Strep; Complete Time: 23:18 pm1 02/20 21:05 Order name: CBC with Diff; Complete Time: 21:54 pm1 02/20 21:05 Order name: CMP; Complete Time: 22:04 pm1 02/20 22:04 Order name: CT Head Brain wo Cont pm1 02/20 23:07 Order name: Throat Culture EDMS 02/20 20:26 Order name: Urine Dipstick-Ancillary (obtain specimen); Complete Time: 20:30 pm1 02/20 20:26 Order name: Urine Test (obtain specimen); Complete Time: 20:30 pm1 02/20 21:05 Order name: Droplet/Contact Precautions; Complete Time: 21:39 pm1 02/20 21:05 Order name: Labs collected and sent; Complete Time: 21:39 pm1 Administered Medications: 02/20 21:43 Drug: TORadol 30 mg Route: IVP; Site: left antecubital; jd3 22:15 Follow up: Response: No adverse reaction zb 21:43 Drug: Reglan 10 mg Route: IVP; Site: left antecubital; jd3 22:15 Follow up: Response: Pain is decreased zb 21:44 Drug: Benadryl 25 mg Route: IVP; Site: left antecubital; jd3 22:15 Follow up: Response: No adverse reaction zb 23:15 Drug: Valium 5 mg Route: PO; zb 02/21 00:00 Follow up: Response: No adverse reaction zb Disposition: 02:51 Co-signature as Attending Physician, Marvin Brady MD. [email or web address] Disposition: 02/22/20 00:26 Discharged to Home. Impression: Nausea and vomiting, Headache. - Condition is Stable. - Discharge Instructions: General Headache Without Cause, Nausea and Vomiting, Adult, Viral Gastroenteritis, Adult, COVID-19. - Prescriptions for Hydroxyzine HCl 25 mg Oral Tablet - take 1 tablet by ORAL route every 6 hours As needed; 30 tablet. - Medication Reconciliation Form, Thank You Letter, Antibiotic Education, Prescription Opioid Use, Work release form form. - Follow up: Emergency Department; When: As needed; Reason: Worsening of condition. Follow up: Private Physician; When: 2 - 3 days; Reason: Recheck today's complaints, Continuance of care, Re-evaluation by your physician. - Problem is new. - Symptoms have improved. Signatures: Dispatcher [employer] EDMS Mauro Patton, JUAN FRANCISCO BALANCE ENGINEER pm1 Slim Welsh RN RN jd3 Tiffany Noble RN RN ca1 Aliyah Santizo RN RN ll2 Marvin Brady MD MD 7 Luisa Colin RN RN zb Corrections: (The following items were deleted from the chart) 00:55 00:26 02/22/2020 00:26 Discharged to Home. Impression: Nausea and vomitingHeadache. ll2 Condition is Stable. Forms are Medication Reconciliation Form, Thank You Letter, Antibiotic Education, Prescription Opioid Use. Follow up: Emergency Department; When: As needed; Reason: Worsening of condition. Follow up: Private Physician; When: 2 - 3 days; Reason: Recheck today's complaints, Continuance of care, Re-evaluation by your physician. Problem is new. Symptoms have improved. pm1
--- NOTE | 2020-02-22 00:27 | ER ---
Nurse's Notes [facility] Name: Abigail Jarrell Age: 35 yrs Sex: Female : 1985 Arrival Date: 02/21/2020 Time: 20:18 Bed 15 Private MD: Diagnosis: Headache;Nausea and vomiting Presentation: 02/20 20:21 Chief complaint: Patient states: I'm really cold but I can't stop sweating, throwing up ca1 and head hurting so bad. All started this morning. Denies cough. Denies fever. Coronavirus screen: Client denies travel out of the [place] in the last 14 days. headache, nausea, vomiting. Client presents with at least one sign or symptom that may indicate coronavirus-19. Standard/surgical mask placed on the client. Provider contacted for isolation considerations. Ebola Screen: Patient negative for fever greater than or equal to 101.5 degrees Fahrenheit, and additional compatible Ebola Virus Disease symptoms Patient denies exposure to infectious person. Patient denies travel to an Ebola-affected area in the 21 days before illness onset. No symptoms or risks identified at this time. Initial Sepsis Screen: Does the patient meet any 2 criteria? No. Patient's initial sepsis screen is negative. Does the patient have a suspected source of infection? No. Patient's initial sepsis screen is negative. Risk Assessment: Do you want to hurt yourself or someone else? Patient reports no desire to harm self or others. Onset of symptoms was February 21, 2020. 20:21 Method Of Arrival: Ambulatory ca1 20:21 Acuity: LISANDRA 3 ca1 Triage Assessment: 21:00 Headache History: Denies prior headaches. 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 - Social history:: Smoking status: Patient reports the use of cigarette tobacco products, denies chronic smoking, but will smoke occasionally. Screenin:00 Abuse screen: Denies threats or abuse. Denies injuries from another. Nutritional zb screening: No deficits noted. Tuberculosis screening: No symptoms or risk factors identified. Fall Risk None identified. Assessment: 21:00 General: Appears in no apparent distress. uncomfortable, Behavior is calm, cooperative, zb appropriate for age. Pain: Complains of pain in top of head, and frontal Pain does not radiate. Pain currently is 8 out of 10 on a pain scale. Quality of pain is described as aching, throbbing, Pain began 1 day ago. Is continuous, Also complains of nausea, photophobia. Neuro: Level of Consciousness is awake, alert, obeys commands, Oriented to person, place, time, situation. Cardiovascular: Heart tones S1 S2 present Capillary refill < 3 seconds in bilateral Patient's skin is warm and dry. Pulses are all present. Respiratory: Airway is patent Respiratory effort is even, unlabored, Respiratory pattern is regular, symmetrical, Breath sounds are clear bilaterally. GI: Abdomen is flat, non-distended. : No signs and/or symptoms were reported regarding the genitourinary system. EENT: No signs and/or symptoms were reported regarding the EENT system. Derm: Skin is intact, is healthy with good turgor, Skin is normal. Musculoskeletal: No signs and/or symptoms reported regarding the musculoskeletal system. Circulation, motion, and sensation intact. Capillary refill < 3 seconds, in bilateral Range of motion: intact in all extremities. 22:00 Reassessment: Patient appears in no apparent distress at this time. Patient and/or zb family updated on plan of care and expected duration. Pain level reassessed. Patient is alert, oriented x 3, equal unlabored respirations, skin warm/dry/pink. c/o of restless legs notified ECP. Patient states feeling better. Patient states symptoms have improved. 22:49 Reassessment: Patient appears in no apparent distress at this time. Patient and/or zb family updated on plan of care and expected duration. Pain level reassessed. Patient is alert, oriented x 3, equal unlabored respirations, skin warm/dry/pink. pt transported to [place]. 02/21 00:15 Reassessment: received report from JUANIS price. ll2 Vital Signs: 02/20 20:21 BP 133 / 88; Pulse 63; Resp 16 S; Temp 97.6(TE); Pulse Ox 100% on R/A; Weight 68.04 kg ca1 (R); Height 5 ft. 5 in. (165.10 cm) (R); Pain 8/10; 02/21 00:45 BP 135 / 86; Pulse 65; Resp 15; Temp 98; Pulse Ox 100% on R/A; ll2 02/20 20:21 Body Mass Index 24.96 (68.04 kg, 165.10 cm) ca1 ED Course: 02/20 20:18 Patient arrived in ED. bp1 20:22 Triage completed. ca1 20:23 Arm band placed on right wrist. ca1 20:30 Urine Microscopic Only Sent. ca1 20:49 Luisa Colin, JUANIS is Primary Nurse. zb 20:50 Mauro Patton NP is PHCP. pm1 20:50 Marvin Brady MD is Attending Physician. pm1 21:00 Patient has correct armband on for positive identification. Bed in low position. Call zb light in reach. Side rails up X 1. Door closed. Noise minimized. 21:35 Inserted saline lock: 20 gauge in left antecubital area, using aseptic technique. Blood ds4 collected. 23:07 CT Head Brain wo Cont In Process Unspecified. EDMS 02/21 00:55 No provider procedures requiring assistance completed. IV discontinued, intact, ll2 bleeding controlled, No redness/swelling at site. Pressure dressing applied. Administered Medications: 02/20 21:43 Drug: TORadol 30 mg Route: IVP; Site: left antecubital; jd3 22:15 Follow up: Response: No adverse reaction zb 21:43 Drug: Reglan 10 mg Route: IVP; Site: left antecubital; jd3 22:15 Follow up: Response: Pain is decreased zb 21:44 Drug: Benadryl 25 mg Route: IVP; Site: left antecubital; jd3 22:15 Follow up: Response: No adverse reaction zb 23:15 Drug: Valium 5 mg Route: PO; zb 02/21 00:00 Follow up: Response: No adverse reaction zb Outcome: 00:26 Discharge ordered by . pm1 00:54 Discharged to home ambulatory. ll2 00:54 Condition: stable 00:54 Discharge instructions given to patient, Instructed on discharge instructions, follow up and referral plans. medication usage, Demonstrated understanding of instructions, follow-up care, medications, Prescriptions given X 1. 00:55 Patient left the ED. ll2 Addendum: 02/24/2020 16:34 Addendum: COVID-19 Result: Negative result given to RN to notify pt. Unable to leave a a5 voice mail due to the number provided was either not a working number, the voice mail has not been set up, or the voice mailbox is full.. Other: Left voice mail with next of kin (pt's mother) requesting for patient to call ER for result. 16:50 Addendum: COVID-19 Result: Negative result given to RN to notify pt. Notified pt of a a5 negative COVID 19 swab results. Pt advised that even with a negative test result they should remain in isolation until symptom free for 3 days without medication. Pt also advised to return to the ED for worsening symptoms. Signatures: Dispatcher [employer] EDMS Cris Martin, RN RN aa5 Kevin Phillips ds4 Mauro Patton, SORTING GRAPPLE OPERATOR SORTING GRAPPLE OPERATOR pm1 Slim Welsh RN RN jd3 Tiffany Noble RN RN ca1 Aliyah Santizo RN RN ll2 Asmita Fields Zipporah, RN RN zb
--- NOTE | 2020-02-23 09:50 | RAD REPORT ---
EXAM DESCRIPTION: CT - Head Brain Wo Cont - 02/22/2020 4:08 am CLINICAL HISTORY: 35 years Female HEADACHE TECHNIQUE: Contiguous axial CT images obtained through the brain without IV contrast. Coronal and sa gittal reformats also provided. This CT exam was performed according to our departmental dose-optimization program, which includes on e or more of the following dose reduction techniques: automated exposure control, adjustment of the m A and/or kV according to patient size, and/or use of iterative reconstruction technique. COMPARISON: No prior exams provided for comparison. FINDINGS: There is no intracranial hemorrhage, extra-axial collection, or acute transcortical infarc tion. The ventricles are normal in size and contour without mass-effect or midline shift. Osseous structures are normal. The paranasal sinuses and mastoid air cells are clear. IMPRESSION: No acute intracranial abnormalities. Electronically signed by: Viky Kaiser MD 02/21/2020 11:12 PM COMMUNICATIONS DEPARTMENT CHAIRPERSON Due to temporary technical issues with the PACS/Fluency reporting system, reports are being signed by the in house radiologist without review as a courtesy to ensure prompt reporting. The interpreting r adiologist is fully responsible for the content of the report.
[2020-02-25 06:29] VITALS: O2SAT 100
[2020-02-25 06:30] VITALS: BP 135/86; TEMP 98
== END 2020-02-22 00:55 | disposition home or self-care (01) ==
LOC: ER 20:14
DX: R51.9 Headache, unspecified (principal); Z20.828 Contact with and (suspected) exposure to other viral communicable diseases; F32.9 Major depressive disorder, single episode, unspecified; Z72.0 Tobacco use
CPT/HCPCS: 36415; 70450; 80053; 81003; 81015; 81025; 85025; 87070; 87081; 87804; 96374; 96375; 99284; J1200; J2765; U0002

== ENCOUNTER 2021-03-22 14:59 | Emergency (ER) | payer BC ==
[2021-03-22] MEDS ORDERED: NA CHLORIDE 0.9% 1,000 ML ONE ×3 (19:40→22:12)
[2021-03-22] MEDS ORDERED: ONDANSETRON 4 MG/2 ML VIAL ONE (19:40)
[2021-03-22 19:45] LABS: Absolute Lymphocytes (CBC) 1.6 K/uL (0.7-4.9); Hematocrit 44.2 % (36.0-45.0); Lymphocytes % 8.2 % (15.3-44.8); MPV 6.6 fL (7.6-11.3); RBC Red Blood Cell Count 5.42 M/uL (3.86-4.86)
[2021-03-22 20:09] LABS: Potassium 2.3 mmol/L (3.5-5.1)
[2021-03-22] MEDS ORDERED: POTASSIUM 25 MEQ EFFERV TAB ONE (20:21)
[2021-03-22] MEDS ORDERED: KCL 20 MEQ/100 mL IVPB 100 ML IV ONE (20:21)
[2021-03-22 22:21] LABS: Urine Blood 2+ (Negative); Urine Glucose Negative (Negative); Urine Protein 2+ (Negative); Urine Specific Gravity >=1.030 (1.005-1.030)
--- NOTE | 2021-03-22 22:24 | ER ---
Nurse's Notes [facility] Name: Abigail Jarrell Age: 36 yrs Sex: Female : 1985 Arrival Date: 03/22/2021 Time: 15:02 Bed 10 Private MD: Diagnosis: Nausea with vomiting, unspecified;Diarrhea, unspecified Presentation: 03/22 15:54 Chief complaint: Patient states: x2 weeks of vomiting and diarrhea and told by [facility] physician to come up here; Pt states she has personally consumed 2L of sprite today prior to 10 am and then since has also consumed gatorade/powerade and water. Coronavirus screen: Vaccine status: Patient reports being unvaccinated. Client denies travel out of the [place] in the last 14 days. Ebola Screen: Patient negative for fever greater than or equal to 101.5 degrees Fahrenheit, and additional compatible Ebola Virus Disease symptoms Patient denies exposure to infectious person. Patient denies travel to an Ebola-affected area in the 21 days before illness onset. Initial Sepsis Screen: Does the patient meet any 2 criteria? HR > 90 bpm. Does the patient have a suspected source of infection? No. Patient's initial sepsis screen is negative. Risk Assessment: Do you want to hurt yourself or someone else? Patient reports no desire to harm self or others. Onset of symptoms was March 07, 2021. 15:54 Method Of Arrival: Ambulatory [facility] 15:54 Acuity: LISANDRA 3 7 Triage Assessment: 15:56 General: Appears in no apparent distress. uncomfortable, slender, well groomed, well jl7 developed, well nourished, Behavior is calm, cooperative, appropriate for age. Pain: Denies pain. GI: Reports diarrhea, nausea, vomiting. 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 - Social history:: Smoking status: Patient reports the use of cigarette tobacco products, smokes one-half pack cigarettes per day, Patient uses street drugs, marijuana. Screenin:57 Abuse screen: Denies threats or abuse. Denies injuries from another. Nutritional ld1 screening: No deficits noted. Tuberculosis screening: No symptoms or risk factors identified. Fall Risk None identified. Assessment: 19:57 General: Appears in no apparent distress. comfortable, Behavior is calm, cooperative, ld1 appropriate for age. Pain: Denies pain. Neuro: Level of Consciousness is awake, alert, obeys commands, Oriented to person, place, time, situation. Cardiovascular: Capillary refill < 3 seconds Patient's skin is warm and dry. Respiratory: Airway is patent Respiratory effort is even, unlabored, Respiratory pattern is regular, symmetrical. GI: Abdomen is flat, non-distended, Reports diarrhea, nausea, vomiting, X 2 weeks. : Reports reduced urination. EENT: No signs and/or symptoms were reported regarding the EENT system. Derm: No signs and/or symptoms reported regarding the dermatologic system. Musculoskeletal: No signs and/or symptoms reported regarding the musculoskeletal system. Injury Description:. Vital Signs: 15:54 BP 131 / 96; Pulse 112; Resp 18; Temp 97.8; Pulse Ox 100% ; Weight 72.57 kg; Height 5 jl7 ft. 5 in. (165.10 cm); Pain 0/10; 22:24 BP 129 / 94; Pulse 101; Resp 18; Pulse Ox 100% on R/A; ld1 15:54 Body Mass Index 26.63 (72.57 kg, 165.10 cm) jl7 ED Course: 15:02 Patient arrived in ED. am2 15:55 Triage completed. jl7 15:57 Arm band placed on right wrist. jl7 19:09 Kathya Harmon FNP-C is [facility]. kb 19:09 An Owusu MD is Attending Physician. kb 19:21 Vesta Beebe, JUANIS is Primary Nurse. ld1 19:38 Basic Metabolic Panel Sent. ld1 19:38 CBC with Diff Sent. ld1 19:57 Patient has correct armband on for positive identification. Bed in low position. Call ld1 light in reach. Side rails up X2. Pulse ox on. NIBP on. Door closed. Noise minimized. Warm blanket given. 19:57 Inserted saline lock: 20 gauge in left antecubital area, using aseptic technique. Blood ld1 collected. 22:56 No provider procedures requiring assistance completed. IV discontinued, intact, ld1 bleeding controlled, No redness/swelling at site. Administered Medications: 19:50 Drug: NS 0.9% 1000 ml Route: IV; Rate: 1000 ml; Site: left antecubital; ld1 19:50 Drug: Zofran (Ondansetron) 4 mg Route: IVP; Site: left antecubital; ld1 20:31 Drug: Potassium Effervescent Tablet 50 mEq Route: PO; sf1 20:42 Drug: Potassium Chloride 20 mEq Route: IV; Rate: calculated rate; Site: left ld1 antecubital; Outcome: 22:23 Discharge ordered by . tiffanie 22:56 Discharged to home ambulatory. ld1 22:56 Condition: stable 22:56 Discharge instructions given to patient, Instructed on discharge instructions, follow up and referral plans. Demonstrated understanding of instructions, follow-up care. 22:56 Patient left the ED. ld1 Signatures: Kathya Harmon, STEAM POWER PLANT OPERATOR-C STEAM POWER PLANT OPERATOR-Dell Stallings RN RN jl7 Marley Mcneil am2 Vesta Beebe RN RN ld1 Chayo Gibson RN RN sf1 Corrections: (The following items were deleted from the chart) 15:58 15:54 Chief complaint: Patient states: x2 weeks of vomiting and diarrhea and told by [email or web address] physician to come up here [place]
--- NOTE | 2021-03-22 22:24 | EDPHYS ---
Physician Documentation [facility] Name: Abigail Jarrell Age: 36 yrs Sex: Female : 1985 Arrival Date: 03/22/2021 Time: 15:02 Bed 10 Private MD: ED Physician An Owusu HPI: 03/22 19:50 This 36 yrs old Female presents to ER via Ambulatory with complaints of General kb Weakness, Diarrhea, dehydration. 20:00 The patient presents to the emergency department with nausea, vomiting, diarrhea. kb Onset: The symptoms/episode began/occurred 2 week(s) ago. Possible causes: unknown. The symptoms are aggravated by nothing. The symptoms are alleviated by nothing. Associated signs and symptoms: Pertinent positives: diarrhea, nausea, vomiting, Pertinent negatives: abdominal pain, fever. Severity of symptoms: At their worst the symptoms were moderate in the emergency department the symptoms are unchanged. The patient has not experienced similar symptoms in the past. The patient has not recently seen a physician. Pt reports she tested positive for covid on 03/07/21 and has had n/v/d since then. PCP told her to come get labs done to make sure her electrolytes were ok. . 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 - Social history:: Smoking status: Patient reports the use of cigarette tobacco products, smokes one-half pack cigarettes per day, Patient uses street drugs, marijuana. ROS: 19:49 Respiratory: Negative for shortness of breath, cough, wheezing, and pleuritic chest kb pain. 19:49 Constitutional: Positive for body aches, Negative for chills, fatigue, fever, malaise, poor PO intake. 19:49 Abdomen/GI: Positive for nausea, vomiting, and diarrhea, Negative for abdominal pain. 19:49 All other systems are negative. Exam: 19:50 Constitutional: This is a well developed, well nourished patient who is awake, alert, kb and in no acute distress. Head/Face: Normocephalic, atraumatic. ENT: Moist Mucous membranes Cardiovascular: Regular rate and rhythm with a normal S1 and S2. No gallops, murmurs, or rubs. No pulse deficits. Respiratory: Respirations even and unlabored. No increased work of breathing. Talking in full sentences Abdomen/GI: Soft, non-tender. No distention Skin: Warm, dry with normal turgor. Normal color. MS/ Extremity: Pulses equal, no cyanosis. Neurovascular intact. Full, normal range of motion. Neuro: Awake and alert, GCS 15, oriented to person, place, time, and situation. Moves all extremities. Normal gait. Psych: Awake, alert, with orientation to person, place and time. Behavior, mood, and affect are within normal limits. Vital Signs: 15:54 BP 131 / 96; Pulse 112; Resp 18; Temp 97.8; Pulse Ox 100% ; Weight 72.57 kg; Height 5 jl7 ft. 5 in. (165.10 cm); Pain 0/10; 22:24 BP 129 / 94; Pulse 101; Resp 18; Pulse Ox 100% on R/A; ld1 15:54 Body Mass Index 26.63 (72.57 kg, 165.10 cm) jl7 MDM: 19:13 Patient medically screened. kb 19:49 Data reviewed: vital signs, nurses notes. Data interpreted: Pulse oximetry: on room air kb is 100 %. Interpretation: normal. 21:11 Counseling: I had a detailed discussion with the patient and/or guardian regarding: the kb historical points, exam findings, and any diagnostic results supporting the discharge/admit diagnosis, lab results, radiology results, the need for outpatient follow up, a family practitioner, to return to the emergency department if symptoms worsen or persist or if there are any questions or concerns that arise at home. ED course: Pt nontoxic in appearance. Tolerating po intake, feeling better. . 03/22 19:20 Order name: CBC with Diff; Complete Time: 19:49 kb 03/22 19:20 Order name: Basic Metabolic Panel; Complete Time: 20:11 kb 03/22 22:21 Order name: Urine Dipstick-Ancillary; Complete Time: 22:23 EDMS 03/22 22:23 Order name: Urine --Ancillary (enter results) mw2 03/22 19:20 Order name: IV Start; Complete Time: 19:38 kb 03/22 20:11 Order name: EKG; Complete Time: 20:12 kb 03/22 20:11 Order name: EKG - Nurse/Tech; Complete Time: 20:42 kb 03/22 20:34 Order name: PO challenge; Complete Time: 20:42 kb 03/22 20:35 Order name: Urine Dipstick-Ancillary (obtain specimen); Complete Time: 22:22 kb Administered Medications: 19:50 Drug: NS 0.9% 1000 ml Route: IV; Rate: 1000 ml; Site: left antecubital; ld1 19:50 Drug: Zofran (Ondansetron) 4 mg Route: IVP; Site: left antecubital; ld1 20:31 Drug: Potassium Effervescent Tablet 50 mEq Route: PO; sf1 20:42 Drug: Potassium Chloride 20 mEq Route: IV; Rate: calculated rate; Site: left ld1 antecubital; Disposition: 03/23 08:04 Co-signature as Attending Physician, An Owusu MD I agree with the assessment and sp3 plan of care. Disposition Summary: 03/22/21 22:23 Discharge Ordered Location: Home kb Condition: Stable kb Diagnosis - Nausea with vomiting, unspecified kb - Diarrhea, unspecified kb Followup: kb - With: Emergency Department - When: As needed - Reason: Worsening of condition Followup: kb - With: Private Physician - When: 2 - 3 days - Reason: Recheck today's complaints, Continuance of care, Re-evaluation by your physician Discharge Instructions: - Discharge Summary Sheet kb - Nausea and Vomiting, Adult, [id number] kb - Diarrhea, Adult, [id number] kb Forms: - Medication Reconciliation Form kb - Thank You Letter kb - Antibiotic Education kb - Prescription Opioid Use kb Prescriptions: - Zofran 4 mg Oral Tablet - take 1 tablet by ORAL route every 6 hours As needed; 20 tablet; Refills: 0, kb Product Selection Permitted Signatures: Dispatcher [employer] Kathya Tineo FNP-C FNP-Ckb Leal, Jahala RN RN jl7 Vesta Beebe RN RN ld1 An Owusu MD MD sp3 Chayo Gibson RN RN sf1
[2021-03-22 23:21] VITALS: TEMP 97.8; O2SAT 100
[2021-03-22 23:22] VITALS: BP 129/94
[2021-03-22 23:59] LABS: Urine Specific Gravity/Preg >1.030 (1.005-1.030)
== END 2021-03-22 22:56 | disposition home or self-care (01) ==
LOC: ER 14:59
DX: R19.7 Diarrhea, unspecified (principal); Z86.16 Personal history of COVID-19; F32.A Depression, unspecified; F17.210 Nicotine dependence, cigarettes, uncomplicated
CPT/HCPCS: 93005; 85025; 80048; 36415; 81025; 81003; 96375; 96374; 99284; J3480; J7030 ×3; J2405

== ENCOUNTER 2024-01-06 21:43 | Emergency (ER) | payer BC, SELFPAY ==
[2024-01-06] MEDS ORDERED: NA CHLORIDE 0.9% 1,000 ML ONE (23:51)
[2024-01-06] MEDS ORDERED: ONDANSETRON 4 MG/2 ML VIAL ONE (23:51)
[2024-01-06] MEDS ORDERED: KETOROLAC 30 MG/ML INJ ONE (23:59)
[2024-01-07 00:14] LABS: Absolute Lymphocytes (CBC) 1.7 K/uL (0.7-4.9); Absolute Monocytes 0.3 K/uL (0.1-1.3); Absolute Neutrophil 8.8 K/uL (1.8-8.0); Basophils % 0.3 % (0-1.3); Eosinophils % 0.2 % (0-4.4); Hematocrit 38.4 % (36.0-45.0); Hemoglobin 12.9 g/dL (12.0-15.0); Lymphocytes % 15.5 % (15.3-44.8); MCH 29.5 pg (27.0-35.0); MCHC 33.6 g/dL (32.0-36.0); MCV 87.6 fL (80-100); MPV 7.3 fL (7.6-11.3); Monocytes % 3.2 % (3.3-12.3); Neutrophils % 80.8 % (41.7-73.7); Platelets 418 thou/uL (152-406); RBC Red Blood Cell Count 4.38 M/uL (3.86-4.86); Red Cell Distribution Width 14.3 % (12.1-15.2)
[2024-01-07 00:55] LABS: Albumin 3.8 g/dL (3.4-5.0); Anion Gap 9.7 mEq/L (5.0-15.0); Bilirubin Total 0.3 mg/dL (0.2-1.0); Globulin 3.7 g/dL (2.3-3.5); Protein, Total 7.5 g/dL (6.4-8.2)
[2024-01-07 00:56] LABS: Potassium 3.7 mEq/L (3.5-5.1)
--- NOTE | 2024-01-07 01:11 | ER ---
Nurse's Notes [facility] Name: Abigail Jarrell Age: 38 yrs Sex: Female : 1985 Arrival Date: 01/06/2024 Time: 21:43 Bed 18 Private MD: Diagnosis: Headache Presentation: 01/05 22:02 Chief complaint: Patient states: Taking 3 ecstasy pills today. 1 at 0800 and 2 at 2pm cm10 and pt has had a headache, nausea and vomiting since. Coronavirus screen: Client denies travel out of the [place] in the last 14 days. Ebola Screen: Patient denies travel to an Ebola-affected area in the 21 days before illness onset. No symptoms or risks identified at this time. Initial Sepsis Screen: Does the patient meet any 2 criteria? No. Patient's initial sepsis screen is negative. Does the patient have a suspected source of infection? No. Patient's initial sepsis screen is negative. Risk Assessment: Do you want to hurt yourself or someone else? Patient reports no desire to harm self or others. Onset of symptoms was January 06, 2024. 22:02 Method Of Arrival: Ambulatory cm10 22:02 Acuity: LISANDRA 3 cm10 Triage Assessment: 22:04 General: Appears in no apparent distress. comfortable, Behavior is calm, cooperative. cm10 Neuro: No deficits noted. Level of Consciousness is awake, alert, obeys commands, Oriented to person, place, time, situation, Appropriate for age. Respiratory: No deficits noted. Airway is patent Respiratory effort is even, unlabored, Respiratory pattern is regular, symmetrical. Historical: - Allergies: 22:03 No Known Allergies; cm10 - PMHx: 22:03 Depression; cm10 - PSHx: 22:03 None; cm10 - Immunization history:: Adult Immunizations up to date. - Infectious Disease History:: Denies. - Social history:: Smoking status: Patient reports the use of cigarette tobacco products, denies chronic smoking, but will smoke occasionally, Patient uses street drugs, Ecstasy. Screenin/29 01:21 [facility] ED Fall Risk Assessment (Adult) History of falling in the last 3 months, jb4 including since admission No falls in past 3 months (0 pts) Confusion or Disorientation No (0 pts) Intoxicated or Sedated No (0 pts) Impaired Gait No (0 pts) Mobility Assist Device Used No (0 pt) Altered Elimination No (0 pt) Score/Fall Risk Level 0 - 2 = Low Risk Oriented to surroundings, Maintained a safe environment. Abuse screen: Denies threats or abuse. Nutritional screening: No deficits noted. Tuberculosis screening: No symptoms or risk factors identified. Assessment: 00:00 Reassessment: Patient appears in no apparent distress at this time. Patient and/or jb4 family updated on plan of care and expected duration. Pain level reassessed. Patient is alert, oriented x 3, equal unlabored respirations, skin warm/dry/pink. 01:13 Reassessment: Patient appears in no apparent distress at this time. Patient and/or jb4 family updated on plan of care and expected duration. Pain level reassessed. Patient is alert, oriented x 3, equal unlabored respirations, skin warm/dry/pink. Vital Signs: 01/05 22:02 BP 120 / 77; Pulse 86; Resp 16; Temp 97.5(O); Pulse Ox 99% on R/A; Weight 65.77 kg; cm10 Height 5 ft. 5 in. ; Pain 12/18; 01/06 01:13 BP 110 / 80; Pulse 79; Resp 16; Pulse Ox 100% on R/A; jb4 01/05 22:02 Body Mass Index 24.13 (65.77 kg, 165.1 cm) cm10 01/05 22:02 Pain Scale: Adult cm10 ED Course: 01/05 21:46 Patient arrived in ED. ra3 22:03 Triage completed. cm10 22:04 Arm band placed on Patient placed in waiting room. cm10 22:43 Avelino Saldana FNP-C is PHCP. dr5 22:43 Donaldo Aguirre MD is Attending Physician. dr5 01/06 00:07 Blair Virgen, JUANIS is Primary Nurse. jb4 01:21 Patient has correct armband on for positive identification. Bed in low position. Call jb4 light in reach. Side rails up X 1. Provided Education on: discharge instruction.. 01:21 No provider procedures requiring assistance completed. IV discontinued, intact, jb4 bleeding controlled, No redness/swelling at site. Pressure dressing applied. Administered Medications: : Drug: NS 0.9% IV 1000 ml IV at 1000 ml once; to be given as a bolus over 60 minutes jb4 Route: IV; Rate: 1000 ml; Site: left antecubital; :23 Follow up: IV Status: Order to discontinue infusion; IV Intake: 600ml ; PT discharged. jb4 00:28 Drug: Ondansetron IVP 4 mg IVP once; over 2 minutes Route: IVP; Site: left antecubital; jb4 :23 Follow up: Response: No adverse reaction; Marked relief of symptoms jb4 00:28 Drug: Ketorolac IVP 15 mg IVP once Route: IVP; Site: left antecubital; jb4 :23 Follow up: Response: No adverse reaction; Marked relief of symptoms jb4 Intake: :23 IV: 600ml; Total: 600ml. jb4 Outcome: 01:10 Discharge ordered by . dr5 01:21 Discharged to home ambulatory, jb4 01:21 Condition: stable 01:21 Discharge instructions given to patient, Instructed on discharge instructions, follow up and referral plans. medication usage, Demonstrated understanding of instructions, follow-up care, medications, Prescriptions given X 2, 01:23 Patient left the ED. jb4 Signatures: Blair Virgen RN RN jb4 Shelby Sapp RN RN cm10 Lisandra Jiménez ra3 Avelino Saldana, POWER EQUIPMENT MECHANICS INSTRUCTOR-C POWER EQUIPMENT MECHANICS INSTRUCTOR-Cdr5
--- NOTE | 2024-01-07 01:11 | EDPHYS ---
[facility] Name: Abigail Jarrell Age: 38 yrs Sex: Female : 1985 Arrival Date: 01/06/2024 Time: 21:43 Bed 18 Private MD: ED Physician Donaldo Aguirre HPI: 01/06 01:51 This 38 yrs old Female presents to ER via Ambulatory with complaints of dr5 Vomiting - Migraine. 01:51 The patient presents to the emergency department with nausea, vomiting. Onset: The dr5 symptoms/episode began/occurred today. Possible causes: Ecstasy tablets x 4. Patient is a 38-year-old female with history of depression coming in with nausea vomiting and headache after taking ecstasy tablets throughout the day. Patient reports she took her first 1 tablet at 8 AM. Patient reports she has done ecstasy in the past without headaches similar to this. Patient denies fever. Patient reports she wants to make sure nothing is wrong with her.. Historical: - Allergies: 01/05 22:03 No Known Allergies; cm10 - PMHx: 22:03 Depression; cm10 - PSHx: 22:03 None; cm10 - Immunization history:: Adult Immunizations up to date. - Infectious Disease History:: Denies. - Social history:: Smoking status: Patient reports the use of cigarette tobacco products, denies chronic smoking, but will smoke occasionally, Patient uses street drugs, Ecstasy. ROS: 01/06 01:51 Constitutional: as per hpi dr5 Exam: 01:51 Constitutional: This is a well developed, well nourished patient who is awake, alert, dr5 and in no acute distress. Head/Face: Normocephalic, atraumatic. Eyes: Pupils equal round and reactive to light, extra-ocular motions intact. Lids and lashes normal. Conjunctiva and sclera are non-icteric and not injected. Cornea within normal limits. Periorbital areas with no swelling, redness, or edema. ENT: Nares patent. No nasal discharge, no septal abnormalities noted. Tympanic membranes are normal and external auditory canals are clear. Oropharynx with no redness, swelling, or masses, exudates, or evidence of obstruction, uvula midline. Mucous membranes moist. Chest/axilla: Normal chest wall appearance and motion. Nontender with no deformity. No lesions are appreciated. Cardiovascular: Regular rate and rhythm with a normal S1 and S2. Normal PMI, no JVD. No pulse deficits. Respiratory: Lungs have equal breath sounds bilaterally, clear to auscultation. No rales, rhonchi or wheezes noted. No increased work of breathing, no retractions or nasal flaring. Abdomen/GI: Soft, non-tender, non-distended Back: No spinal tenderness. No costovertebral tenderness. Full range of motion. Skin: Warm, dry with normal turgor. Normal color with no rashes, no lesions, and no evidence of cellulitis. Neuro: Awake and alert, GCS 15, oriented to person, place, time, and situation. Cranial nerves II-XII grossly intact. Motor strength 5/5 in all extremities. Sensory grossly intact. Cerebellar exam normal. Normal gait. Vital Signs: 01/05 22:02 BP 120 / 77; Pulse 86; Resp 16; Temp 97.5(O); Pulse Ox 99% on R/A; Weight 65.77 kg; cm10 Height 5 ft. 5 in. ; Pain 12/18; 01/06 01:13 BP 110 / 80; Pulse 79; Resp 16; Pulse Ox 100% on R/A; jb4 01/05 22:02 Body Mass Index 24.13 (65.77 kg, 165.1 cm) cm10 01/05 22:02 Pain Scale: Adult cm10 MDM: 01/05 22:44 Medical Screening Exam initiated dr5 01/06 01:51 Differential diagnosis: gastroenteritis, CHANDLER, Electrolyte Abnormality, Illegal dr5 Substance Abuse, Migraine, Dehydration. Data reviewed: vital signs, nurses notes. Consideration of Admission/Observation Escalation of care including admission/observation considered. Considered admission if creatinine level was elevated, electrolyte imbalance.. I considered the following discharge prescriptions or medication management in the emergency department Medications were administered in the Emergency Department. See MAR. Care significantly affected by the following chronic conditions: Depression. Care significantly affected by the following Social Determinants of Health: Poor access to healthcare and/or lack of insurance, Poor access to transportation, Inadequate housing, Misuse of alcohol and/or drugs. Counseling: I had a detailed discussion with the patient and/or guardian regarding the historical points, exam findings, and any diagnostic results supporting the discharge/admit diagnosis, the presence of at least one elevated blood pressure reading (>120/80) during this emergency department visit, lab results, the need for outpatient follow up, for definitive care, a family practitioner, to return to the emergency department if symptoms worsen or persist or if there are any questions or concerns that arise at home. Medication response: Toradol relieved patient's pain. The symptoms have resolved, Zofran relieved the patient's nausea. Response to treatment: the patient's symptoms have resolved after treatment. ED course: Confirm patient has a ride home. Headache has resolved. Will send patient home with anti-inflammatories and nausea medications. Recommended patient not use illicit drug use in the future. PCP follow-up as needed. All questions answered.. 01/05 23: Order name: CBC with Diff; Complete Time: 00:49 dr5 01/05 23: Order name: CMP; Complete Time: dr5 01/05 23: Order name: Lipase; Complete Time: : dr5 Administered Medications: : Drug: NS 0.9% IV 1000 ml IV at 1000 ml once; to be given as a bolus over 60 minutes jb4 Route: IV; Rate: 1000 ml; Site: left antecubital; Follow up: IV Status: Order to discontinue infusion; IV Intake: 600ml ; PT discharged. : Drug: Ondansetron IVP 4 mg IVP once; over 2 minutes Route: IVP; Site: left antecubital; jb4 :23 Follow up: Response: No adverse reaction; Marked relief of symptoms 4 : Drug: Ketorolac IVP 15 mg IVP once Route: IVP; Site: left antecubital; jb4 : Follow up: Response: No adverse reaction; Marked relief of symptoms jb4 Disposition Summary: 01/07/24 01:10 Discharge Ordered Notes: Location: Home dr5 Condition: Stable dr5 Diagnosis - Headache dr5 Followup: dr5 - With: Emergency Department - When: As needed - Reason: Worsening of condition Followup: dr5 - With: Private Physician - When: 1 - 2 days - Reason: Recheck today's complaints, Continuance of care, Re-evaluation by your physician Discharge Instructions: - Discharge Summary Sheet dr5 - Illegal Drug Use Information, Adult dr5 Forms: - Medication Reconciliation Form dr5 - Patient Portal Instructions dr5 - Leadership Thank You Letter dr5 Prescriptions: - Anaprox DS 550 mg Oral Tablet - take 1 tablet ORAL route every 12 hours As needed; 20 tablet; Refills: 0, dr5 Product Selection Permitted - Zofran 4 mg Oral Tablet - take 1 tablet ORAL route every 12 hours As needed; 20 tablet; Refills: 0, dr5 Product Selection Permitted Addendum: 01/08/2024 01:56 I was immediately available for consultation during this patient's visit. I did not e c2 personally see the patient or discuss the patient with the IGNACIA. . Signatures: Dispatcher [employer] Blair Arroyo RN RN jb4 Shelby Sapp RN RN cm10 Donaldo Aguirre MD MD ec2 Avelino Saldana, BOILER ROOM OPERATOR-C BOILER ROOM OPERATOR-Cdr5
[2024-01-07 03:46] VITALS: BP 110/80; TEMP 97.5; O2SAT 100
== END 2024-01-07 01:23 | disposition home or self-care (01) ==
LOC: ER 21:43
DX: R51.9 Headache, unspecified (principal)
CPT/HCPCS: 36415; 80053; 83690; 85025; J2405; J7030